=== PATIENT | female | born 1960 | race Caucasian/White ===

== ENCOUNTER 2016-12-10 09:36 | Outpatient (CLI) | payer MEDICARE, OTHER | END 2016-12-10 09:38 | LOC: POD 09:36 | PROVIDERS: ATTEND Podiatrist Public Medicine | DX: G80.8 Other cerebral palsy (principal); B35.1 Tinea unguium; L60.0 Ingrowing nail; M79.674 Pain in right toe(s); M79.675 Pain in left toe(s) | CPT/HCPCS: 11721; G0463 ==

== ENCOUNTER 2017-03-11 09:46 | Outpatient (CLI) | payer MEDICARE, OTHER | END 2017-03-11 09:47 | LOC: POD 09:46 | PROVIDERS: ATTEND Podiatrist Public Medicine | DX: G80.8 Other cerebral palsy (principal); S93.621A Sprain of tarsometatarsal ligament of right foot, initial encounter; M79.671 Pain in right foot | CPT/HCPCS: G0463 ==

== ENCOUNTER 2017-04-21 14:33 | Outpatient (CLI) | payer MEDICARE, OTHER ==
--- NOTE | 2017-04-21 18:33 | Diagnostic Imaging Report ---
[facility] [address] [facility].[address] [address] Report Submission Date: April 21, 2017 3:32:56 PM CDT Patient Study Name: DEX BIANCHI Date: April 21, 2017 2:44:08 PM CDT Modality Type: CR Gender: F Description: LOWER EXTREMITY : 58 Institution: [facility] Physician: CARMINA ARANA - OP Right ankle 3 views Clinical history: Chronic right ankle pain Moderate degree of osteoarthritis with marginal spurring as well as osteopenia. Marginal spurring are seen in the right os talus and the os calcis with fused subtalar joint space . 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
== END 2017-04-21 14:34 ==
LOC: RAD 14:33
PROVIDERS: ATTEND Family Medicine
DX: M25.571 Pain in right ankle and joints of right foot (principal)
CPT/HCPCS: 73610

== ENCOUNTER 2017-06-24 09:01 | Outpatient (CLI) | payer MEDICARE, OTHER | END 2017-06-24 09:02 | LOC: POD 09:01 | PROVIDERS: ATTEND Podiatrist Public Medicine | DX: G80.8 Other cerebral palsy (principal); S93.621A Sprain of tarsometatarsal ligament of right foot, initial encounter; X58.XXXA Exposure to other specified factors, initial encounter; Y93.9 Activity, unspecified; Y99.9 Unspecified external cause status; B35.1 Tinea unguium; L60.0 Ingrowing nail; M79.671 Pain in right foot; M79.674 Pain in right toe(s); M79.675 Pain in left toe(s) | CPT/HCPCS: 11721; G0463 ==

== ENCOUNTER 2017-08-11 09:15 | Outpatient (CLI) | payer MEDICARE, OTHER ==
[2017-08-11 10:21] LABS: eGFR (African) > 60; eGFR (Non-African) > 60
--- NOTE | 2017-08-11 13:18 | Diagnostic Imaging Report ---
CARMINA ARANA [facility] [address] [facility] [address] [place] [address]. [id number] Report Submission Date: Aug 11, 2017 10:45:01 AM CDT Patient Study Name: DEX BIANCHI Date: Aug 11, 2017 10:01:34 AM CDT Modality Type: US Gender: F Description: US ABD LIMITED : 58 Institution: [facility] Physician: CARMINA ARANA Examination: Ultrasound gallbladder History: Epigastric discomfort Findings: Sonographic evaluation of the right upper quadrant demonstrates the gallbladder filled with gallstones. Significant posterior shadowing. Gallbladder wall measures 2.3 mm. Common bile duct measures 4.3 mm. No intrahepatic biliary dilation. Liver demonstrates a diffuse increased echogenicity. No mass or cyst. Normal flow on color analysis. Normal Doppler waveforms. Technologist reports positive Martinez sign during the course of the examination. Right kidney measures 9.1 cm in length. No cortical mass or cyst. No hydronephrosis. Pancreatic region without gross irregularity. Impression: Gallbladder completely filled with gallstones. No common bile duct obstruction. Surgical consultation recommended - if not already obtained. Fatty liver. Electronically signed on Aug 11, 2017 10:45:01 AM CDT by: Wale CASTILLO
== END 2017-08-11 09:16 ==
LOC: RAD 09:15
PROVIDERS: ATTEND Family Medicine
DX: R10.11 Right upper quadrant pain (principal)
CPT/HCPCS: 36415; 76705; 80053; 80061

== ENCOUNTER 2017-09-02 12:30 | Emergency (ER) | payer MEDICARE, OTHER ==
--- NOTE | 2017-09-02 12:46 | ED Physician Documentation ---
Fall - HISTORIAN Historian: patient, parent - HPI Stated Complaint: fell out of w/c Chief Complaint: Fall Additional Information: coming out of [employer] wheel chair fell off curb w/injury pain to rt hip and rt elbow. pt denies all other injuries Onset: just prior to arrival, today Context: lost balance r: moderate Associated Symptoms:: no loss of consciousness Location of Pain/Injury: denies: head, neck, abdomen, upper back, mid back, lower back Injury to Right Extremity: elbow, hip Injury to Left Extremity: none - ROS CONST: no problems MS/SKIN/LYMPH: denies: weakness, numbness, neck pain, back pain, ankle swelling , leg swelling EYES/ENT: none CVS/RESP: none GI/: denies: problems urinating, nausea, vomiting - PAST HX Past History: other (CP GB HTN) Allergies/Adverse Reactions: Allergies Allergy/AdvReac Type Severity Reaction Status Date / Time acetaminophen Allergy Verified 09/02/17 12:46 [From Tylenol-Codeine #3] codeine phosphate Allergy Verified 09/02/17 12:46 [From Tylenol-Codeine #3] Penicillins Allergy Verified 09/02/17 13:01 Sulfa (Sulfonamide Allergy Verified 09/02/17 13:01 Antibiotics) Home Medications: Ambulatory Orders Medication Instructions Recorded Quetiapine Fumarate 75 mg PO DAILY u2 09/12/13 Tolterodine Tartrate [Detrol La] 2 mg PO DAILY av 09/12/13 - SOCIAL HX Smoking History: non-smoker Alcohol Use: none Drug Use: none - FAMILY HX Family History: none - VITAL SIGNS Vital Signs: Vital Signs Temp Pulse Resp BP Pulse Ox 98.8 F 59 L 20 176/80 97 09/02/17 12:32 09/02/17 12:32 09/02/17 12:32 09/02/17 12:32 09/02/17 12:32 - REVIEWED ASSESSMENTS Nursing Assessment Reviewed: Yes Vitals Reviewed: Yes ED Results Lab/Radiology - Radiology Radiology Impressions: rt hip rt elbow xray reveals no fracture and pt has been up to commode nicolasa well --there appears to be no fracture - Orders Orders: ED Orders Category Date Time Status ELBOW 3 VIEWS [RAD] Stat Exams 09/02/17 Ordered RT HIP 2VIEW COMPLETE [RAD] Stat Exams 09/02/17 Ordered Fall Physical Exam - Physical Exam General Appearance: mild distress Head: non-tender, no swelling, no obvious injury Neck: painless ROM, trachea midline ENT: nml external inspection Resp/CVS: chest non-tender, no ecchymosis, breath sounds nml, no resp. distress , heart sounds nml Abdomen: soft, non-tender Neuro: oriented x3, CN's nml as tested, sensation nml, motor nml, mood/affect nml Skin: color nml. No: no rash (SKINNED RT ELBOW) Back: normal inspection - [place] Coma Score Eyes Open: Spontaneous Speech: Oriented Motor: Obeys Commands Discharge Clincal Impression: fall w/contusion rt hip rt elbow, hx cerebral palsy Referrals: Asim De Anda MD [Primary Care Provider] - 2 Days Condition: Good Disposition: 01 HOME, SELF-CARE Decision to Admit: NO Decision Time: 13:46
--- NOTE | 2017-09-02 13:44 | Diagnostic Imaging Report ---
AIDA NELSON [facility] [address] [facility].[address] [address] Report Submission Date: Sep 02, 2017 1:29:57 PM CDT Patient Study Name: DEX BIANCHI Date: Sep 02, 2017 12:42:51 PM CDT Modality Type: CR Gender: F Description: UPPER EXTREMITY : 58 Institution: [facility] Physician: AIDA NELSON Examination: Plain film elbow History: Fall Comparison exams: None provided Findings: 3 views of the elbow demonstrate normal cortical margins. No fracture. No dislocation. Radial head is within normal limits. No joint effusion Impression: No acute osseous abnormality. Electronically signed on Sep 02, 2017 1:29:57 PM CDT by: Wale CASTILLO
--- NOTE | 2017-09-02 13:44 | Diagnostic Imaging Report ---
AIDA NELSON [facility] [address] [facility].[address] [address] Report Submission Date: Sep 02, 2017 1:30:52 PM CDT Patient Study Name: DEX BIANCHI Date: Sep 02, 2017 12:58:00 PM CDT Modality Type: CR Gender: F Description: PELVIS : 58 Institution: [facility] Physician: AIDA NELSON Examination: Plain film hip History: Hip discomfort Comparison exams: None provided Findings: 2 views of the hip demonstrate normal cortical margins. No fracture no dislocation. No soft tissue abnormality. Impression: No acute osseous abnormality. Electronically signed on Sep 02, 2017 1:30:52 PM CDT by: Wale CASTILLO
[2017-09-02] MEDS: DIPH,PERTUSS(ACELL),TET VAC/PF 0.5 ML DISP.SYRIN IM ONE (13:56)
[2017-09-02 14:10] VITALS: BP 140/68
== END 2017-09-02 14:08 | disposition home or self-care (01) ==
LOC: ED 12:30
DX: S70.01XA Contusion of right hip, initial encounter (principal); S50.01XA Contusion of right elbow, initial encounter
CPT/HCPCS: 73080; 73502; 90471; 90715; 99283

== ENCOUNTER 2017-09-03 11:04 | Outpatient (CLI) | payer MEDICARE, OTHER ==
[2017-09-02 14:10] VITALS: BP 140/68
== END 2017-09-03 11:05 ==
LOC: OUT 11:04
PROVIDERS: ATTEND Colon & Rectal Surgery
DX: K80.20 Calculus of gallbladder without cholecystitis without obstruction (principal)
CPT/HCPCS: G0463

== ENCOUNTER 2017-09-23 10:04 | Outpatient (CLI) | payer MEDICARE, OTHER | END 2017-09-23 10:10 | LOC: POD 10:04 | PROVIDERS: ATTEND Podiatrist Public Medicine | DX: B35.1 Tinea unguium (principal); L60.0 Ingrowing nail; G80.8 Other cerebral palsy; M79.674 Pain in right toe(s); M79.675 Pain in left toe(s) | CPT/HCPCS: 11721; G0463 ==

== ENCOUNTER 2017-09-24 07:08 | Day surgery (SDC) | payer MEDICARE, OTHER ==
[2017-09-24] MEDS ORDERED: GLYCOPYRROLATE 0.2 MG/1 ML 1 ML ONE (08:00)
[2017-09-24] MEDS ORDERED: DEXAMETHASONE SOD PHOS 4 MG/ML VIAL ONE (08:00)
[2017-09-24] MEDS ORDERED: SALINE FLUSH 10 ML DISP.SYRIN IVF ONE (08:00)
[2017-09-24] MEDS ORDERED: KETOROLAC TROMETHAMINE 30 MG/1ML VIAL ONE (08:00)
[2017-09-24] MEDS ORDERED: BUPIVACAINE HCL/EPINEPHRINE/PF 0.25% VIAL IM ONE (08:00)
[2017-09-24] MEDS ORDERED: ROCURONIUM BROMIDE 10 MG/ML 5ML VIAL ONE (08:00)
[2017-09-24] MEDS ORDERED: NEOSTIGMINE METHYLSULFATE 1 MG/ML VIAL ONE (08:00)
[2017-09-24] MEDS ORDERED: PROPOFOL 200 MG/20 ML VIAL IV ONE (08:00)
[2017-09-24] MEDS ORDERED: SEVOFLURANE 250 ML LIQUID IH ONE (08:00)
[2017-09-24] MEDS ORDERED: ONDANSETRON HCL/PF 4 MG/ 2ML VIAL ONE ×2 (08:00→11:02)
[2017-09-24] MEDS ORDERED: fentaNYL CITRATE/PF 100 MCG/ 2ML AMP ONE (08:00)
[2017-09-24] MEDS ORDERED: LACTATED RINGERS 1,000 ML IV.SOLN IV ONE (08:00)
[2017-09-24] MEDS ORDERED: ACETAMINOPHEN 1,000 MG/100 ML INJ IV ONE (08:00)
[2017-09-24] MEDS ORDERED: ceFAZolin SODIUM 1 GM VIAL ONE (08:00)
[2017-09-24] MEDS ORDERED: LIDOCAINE HCL/PF 2% 100 MG/5 ML VIAL IJ ONE (08:00)
[2017-09-24] MEDS ORDERED: MORPHINE SULFATE 2 MG/ML PREFILLED SYR ONE (11:02)
--- NOTE | 2017-09-24 12:00 | Operative Note ---
SURGEON: Kehinde Bah MD ANESTHESIA: General. ESTIMATED BLOOD LOSS: 10 mL. COMPLICATIONS: None. PREOPERATIVE DIAGNOSIS: Symptomatic cholelithiasis. POSTOPERATIVE DIAGNOSIS: Chronic cholecystitis. PROCEDURE PERFORMED: Cholecystectomy. INDICATIONS FOR PROCEDURE: This is a 57-year-old woman with intermittent right upper quadrant pain who was found to have gallstones on ultrasound. She now presents for a cholecystectomy. DESCRIPTION OF PROCEDURE: Patient was brought to the operating room and general anesthesia was achieved. The abdomen was prepped and draped. An incision was made at the umbilicus and carried to the subcutaneous tissues. The fascia was divided and the peritoneum was entered. The Alisa trocar was inserted. The abdomen was insufflated. A 5 mm epigastric port and two 5 mm right upper quadrant ports were placed. The gallbladder was small and chronically inflamed. It contained a very large stone at the gallbladder neck. There were some omental adhesions which were taken down sharply. The cystic duct and artery were dissected from the surrounding tissues. The anatomy was very clear. The stone at the neck extended down into the proximal cystic duct a short ways. The cystic duct was too large for a 5 mm clip. The epigastric port was enlarged and a 10 mm port was placed. The 10 mm clips were placed across the cystic duct and the duct was divided right at its junction with the gallbladder. The gallbladder was removed from its bed with electrocautery and was placed in an Endo Catch bag and removed from the umbilical port. There was no bile leak or bleeding from the liver bed. The ports were removed. All sites were hemostatic. The fascia of the umbilical and epigastric ports was closed with 0-Vicryl sutures. The skin involved incisions were closed with 4-0 Vicryl subcuticular sutures. Steri -Strips and dressings were placed over the incisions. The patient was awakened and extubated in the operating room and taken to the recovery room in good condition. FINDINGS: Large stone with chronic inflammation. No acute inflammation. cc: Dr. Asim CASTILLO
== END 2017-09-24 07:10 ==
LOC: OPSURG 07:08
PROVIDERS: ATTEND Colon & Rectal Surgery
DX: K80.80 Other cholelithiasis without obstruction (principal); K81.9 Cholecystitis, unspecified
CPT/HCPCS: J0690; J1100; J1885; J2001; J2270; J2405; J2704; J2710; J3010; J3490; J7030; J7120; 47562; S1016

== ENCOUNTER 2017-10-08 10:11 | Outpatient (CLI) | payer MEDICARE, OTHER | END 2017-10-08 10:12 | LOC: OUT 10:11 | PROVIDERS: ATTEND Colon & Rectal Surgery | DX: Z09 Encounter for follow-up examination after completed treatment for conditions other than malignant neoplasm (principal); Z90.49 Acquired absence of other specified parts of digestive tract | CPT/HCPCS: G0463 ==

== ENCOUNTER 2018-03-10 12:11 | Outpatient (CLI) | payer MEDICARE, OTHER ==
[2018-03-10 12:35] LABS: BASOPHILS % 0.7 (0.0-1.5); EOSINOPHILS % 4.9 % (0.0-6.8); MEAN CORPUSCULAR HEMOGLOBIN 25.7 pg (28.0-34.0); MONOCYTES % 4.3 % (0.0-11.0); NEUTROPHILS # 3.4 # k/uL (1.4-7.7)
[2018-03-10 13:04] LABS: eGFR (African) > 60; eGFR (Non-African) > 60
--- NOTE | 2018-03-10 20:28 | Diagnostic Imaging Report ---
CARMINA ARANA~ [facility] [address] [address] ~ ~ ~ ~ Report Submission Date: Mar 10, 2018 12:57:46 PM CDT Patient ~ Study Name: DEX BIANCHI ~ Date: Mar 10, 2018 12:35:27 PM CDT ~ Modality Type: DX Gender: F ~ Description: SHOULDER : 58 ~ Institution: [facility] Physician: CARMINA ARANA ~ ~ ~ Examination: Plain film right shoulder History: RT SHOULDER, PAIN IN RT SHOULDER AFTER FALL ABOUT 10 DAYS AGO, PT STATES TORN ROTATOR CUFF IN 1998 (Hx) Comparison exams: None provided Findings: 3 views of the right shoulder demonstrate normal cortical margins.~ No evidence for fracture or dislocation. Acromioclavicular joint and humral head degenerative spurring. No soft tissue abnormality. Old right rib fractures. Impression: Articular degenerative changes. No acute fracture. ~ Electronically signed on Mar 10, 2018 12:57:46 PM CDT by: Wale CASTILLO
== END 2018-03-10 12:13 ==
LOC: LAB 12:11
PROVIDERS: ATTEND Family Medicine
DX: I10 Essential (primary) hypertension (principal); M25.511 Pain in right shoulder
CPT/HCPCS: 36415; 73030; 80053; 85025

== ENCOUNTER 2018-04-05 10:46 | Day surgery (SDC) | payer MEDICARE, OTHER ==
--- NOTE | 2018-04-05 14:11 | GI Report ---
REFERRING PHYSICIAN: Dr. Asim De Anda EMT I/99: Justo Degroot MD PROCEDURE MEDICATION: Propofol as per anesthesia. INDICATIONS: This 57-year-old woman states that sometimes she gets regurgitation of food at nighttime. There is a question of a hernia in the past. She has had a cholecystectomy. She is a paraplegic and in a wheelchair. She is 5 feet 3 inches and has central obesity. Her weight is 66 kilograms. Sometimes, she thinks food stops but then sometimes it is later and she regurgitates it back up. She is referred for the above indication. She is on a PPI daily. PROCEDURE PERFORMED: Endoscopy and biopsies. PROCEDURE: An Olympus video endoscope is passed through the esophagus under direct visualization. She has a short esophagus, 28 to 30 cm in length, and then has about a 6 cm hiatal hernia with free reflux. In the fundus and body, there are a number of polyps. In the body of the stomach, there is mild gastritis. Biopsies were taken for pathology. A couple of benign-appearing polyps were biopsied. Duodenum showed normal mucosa. Patient tolerated the procedure well. FINDINGS: 1. A large hiatal hernia. 2. Distal esophagitis. 3. Atrophic gastritis. 4. Fundic gland polyps. RECOMMENDATIONS: 1. She needs to get her bed elevated when she sleeps, at least 3 inches. 2. Smaller meals. 3. Weight loss of 10 to 15 pounds would be beneficial. 4. Would take an antacid, like Gaviscon, at bedtime. 5. Follow up biopsy results. cc: Dr. Asim CASTILLO
== END 2018-04-05 10:48 ==
LOC: OPSURG 10:46
PROVIDERS: ATTEND Internal Medicine Gastroenterology
DX: K20.9 Esophagitis, unspecified (principal); K44.9 Diaphragmatic hernia without obstruction or gangrene; K29.70 Gastritis, unspecified, without bleeding
CPT/HCPCS: J2001; J2704; J7120; 43239; 88341; S1016

== ENCOUNTER 2018-05-26 10:47 | Outpatient (CLI) | payer MEDICARE, OTHER | END 2018-05-26 10:50 | LOC: POD 10:47 | PROVIDERS: ATTEND Podiatrist Public Medicine | DX: G80.8 Other cerebral palsy (principal); S93.621A Sprain of tarsometatarsal ligament of right foot, initial encounter; B35.1 Tinea unguium; L84 Corns and callosities; L60.0 Ingrowing nail; M79.671 Pain in right foot; M79.674 Pain in right toe(s); M79.675 Pain in left toe(s) | CPT/HCPCS: 11721; G0463 ==

== ENCOUNTER 2018-06-28 13:09 | Outpatient (CLI) | payer MEDICARE, OTHER | END 2018-06-28 13:10 | LOC: RAD 13:09 | PROVIDERS: ATTEND Family Medicine | DX: R13.13 Dysphagia, pharyngeal phase (principal) | CPT/HCPCS: 74230; A9698 ==

== ENCOUNTER 2018-07-21 13:50 | Outpatient (CLI) | payer MEDICARE, OTHER ==
--- NOTE | 2018-07-25 16:58 | OP Clinic Progress Note ---
REASON FOR VISIT: This 57-year-old lady is seen accompanied by her sister. She has problems with dysphagia. She had a video swallow that had some degree of a nondiagnostic answer. More that the upper portion of the swallowing phase is normal with the oropharyngeal swallow being normal and she does not aspirate, which even though she is bothered by the swallowing, she is not aspirating and that would indicate the patient does not have to have something done at this point in time. The patient notes very dry secretions. She does tend to be a mouth breather. The patient has cerebral palsy and it has had a progressive affect on her life by putting her in a wheelchair more or less 10 years ago. She has a history of a hiatal hernia that is very large. She has had an upper endoscopy that notes the hiatal hernia. There is no evident mass or tumor. She has had biopsies of the esophagus. Patient notes that she does better with soft foods and with liquids. The patient has a history of a left-sided thyroidectomy. She takes thyroid supplements. Using a flexible fiberoptic laryngoscope, I can see the oropharynx. The tonsils are not obstructive but they have a few small exudates on them. She also has lingual tonsils that also have some exudates on them but they are not obstructive. The vocal cords abduct and adduct well. There are no evident masses or tumors and the hypopharynx is normal. This patient is slightly tender over both sides of her neck overlying the thyroid. She cannot really be specific as to which side may or may not bother her to some degree. I do not feel a large mass in the neck nor overlying the thyroid on either side. She is somewhat overweight and it is difficult to give a full evaluation of the neck and the thyroid area. There are multiple etiologies of Rosalie's dysphagia. These would include neuromuscular that may be associated with her cerebral palsy. She is kyphotic and that would tend to push the cervical vertebrae anterior and contribute to the dysfunction of the swallowing mechanism at and around the level of the cricopharyngeus. She may have a small amount of thyroiditis clinically. She also has dry secretions that make it more difficult for anything to go down and she has reflux. PLAN: I reviewed these issues with her. I suggested that she try different swallowing mechanisms, turning the head, chin tuck left, chin tuck right, lifting up the chin, and always making sure she has liquids around when she swallows. I am not sure whether it would contribute significantly to any improvement or resolution of it, but she could have esophageal manometry done to see how much tone there is in the swallowing mechanism and just chronically. This may give some indication whether the cricopharyngeus muscle is too tight or whether it is too lax in the ability to swallow. The patient has not lost weight. The patient does not aspirate. I am not particularly encouraging this additional study at this point in time. Both the patient and her sister seem to appreciate a fairly thorough evaluation of the issues that are contributing to this. They can return at any time on a p.r.n. basis for a reevaluation. Again, because the patient is not aspirating and she is not losing weight, it is a significantly annoying problem at this point. cc: Dr. Asim CASTILLO
== END 2018-07-21 13:52 ==
LOC: ENT 13:50
PROVIDERS: ATTEND Otolaryngology
DX: R13.10 Dysphagia, unspecified (principal); G80.9 Cerebral palsy, unspecified
CPT/HCPCS: G0463